=== PATIENT | female | born 1945 ===

== ENCOUNTER 2017-07-21 12:33 | Outpatient (CLI) | payer OTHER ==
[~2017-07-21] VITALS: Ht 157.5 cm; Wt 82.6 kg
[2017-07-21] MEDS ORDERED: AYR SALINE NA14.1 GM NASAL (13:24)
[2017-07-21] MEDS ORDERED: LIPO-FLAVONOID1 EACH PO (13:25)
[2017-08-04] MEDS ORDERED: CELEBREX50 MG PO (14:04)
[2017-08-04] MEDS ORDERED: LISINOPRIL10 MG PO (14:04)
[2017-08-04] MEDS ORDERED: PROTONIX40 MG PO (14:05)
[2017-08-04] MEDS ORDERED: HYDROCHLOROTH12.5 M1 PO (14:05)
[2017-08-04] MEDS ORDERED: LEVSIN0.125 MG PO (14:05)
[2017-08-04] MEDS ORDERED: [UNRECOGNIZED DRUG - OTHER] PO (14:06)
[2017-08-04] MEDS ORDERED: CARAFATE1 GM/10 ML PO (14:06)
[2017-08-06] MEDS ORDERED: PERCOCET 5-3251 EACH PO (12:14)
[2017-08-06] MEDS ORDERED: OXYCODONE HCL5 MG PO (13:41)
== END 2017-07-21 12:45 | disposition home or self-care (01) ==
LOC: OFIC 805 12:33
DX: G47.30 Sleep apnea, unspecified (principal); R42 Dizziness and giddiness; J31.0 Chronic rhinitis